=== PATIENT | male | born 1940 | race Caucasian/White ===

== ENCOUNTER 2019-05-04 04:21 | Inpatient (IN) | payer MEDICARE, OTHER ==
[2019-05-04] VITALS (7 sets, daily range): BP systolic 108–161; BP diastolic 50–94
[~2019-05-04] VITALS: Ht 175.3 cm; Wt 90.7 kg
[2019-05-04] MEDS ORDERED: HYDR12.53 PO (04:38)
[2019-05-04] MEDS ORDERED: ENAL20TA PO (04:38)
[2019-05-04] MEDS ORDERED: PIOG45TA PO (04:38)
[2019-05-04] MEDS ORDERED: GLIP10TA24 PO (04:38)
[2019-05-04] MEDS ORDERED: INSU100I13 SQ (04:38)
[2019-05-04] MEDS ORDERED: PRAV20TA2 PO (04:38)
[2019-05-04] MEDS ORDERED: ASPI-484 PO (04:38)
[2019-05-04] MEDS ORDERED: METF500T27 PO (04:38)
[2019-05-04] MEDS ORDERED: SILD50TA PO (04:40)
--- NOTE | 2019-05-04 04:54 | PCM.EKG ---
[facility] Test Date: 2019-05-04 Test Time: 04:51:52 Pat Name: CHUY MEJÍA Department: Room: 314 Gender: M Job Recruiter: KARRIE : 1940 Requested By: VALERIE GONZALES Order Number: [id number] Reading MD: Valerie GONZALES Measurements Intervals [place] Rate: 69 P: 93 [place]: 239 QRS: 81 QRSD: 94 T: 35 QT: 403 QTc: 432 Interpretive Statements Sinus rhythm Sinus pause Prolonged [place] interval Borderline right axis deviation Abnormal R-wave progression, late transition Baseline wander in lead(s) V3 No previous ECG available for comparison Electronically Signed On 05-15-2019 21:28:40 CHIROPRACTIC PHYSICIAN by Valerie GONZALES Please click the below link to view image of tracing.
[2019-05-04 05:01] LABS: BASOPHIL % 0.2 % (0.0-0.2); EOSINOPHIL # 0.1 10^3/uL (0.0-0.2); EOSINOPHIL % 1.5 % (0.0-5.0); HEMOGLOBIN 15.4 g/dL (13.9-16.3); LYMPHOCYTES # 1.1 10^3/uL (1.0-4.8); LYMPHOCYTES % 12.9 % (24.0-44.0); MEAN CELL HGB 32.3 pg (26-34); MEAN CELL HGB CONCENTRATION 33.3 g/dL (33-37); MEAN CORP VOLUME 96.9 fL (78-100); MEAN PLATELET VOLUME 9.9 fL (7.8-11.0); MONOCYTES # 0.7 10^3/uL (0.3-0.8); MONOCYTES % 8.4 % (5.0-12.0); NEUTROPHIL # 6.7 10^3/uL (1.8-7.7); RED CELL DISTRIBUTION WIDTH 13.2 % (11.5-14.5); WHITE BLOOD CELL 8.7 10^3/uL (4.5-11.0)
[2019-05-04 05:25] LABS: ALANINE AMINOTRANSFERASE(ML) 19 U/L (12-78); ALKALINE PHOSPHATASE 106 U/L (50-136); ASPARTATE AMINO TRANSFERASE 16 U/L (0-35); CALCIUM 9.3 mg/dL (8.4-10.5); CARBON DIOXIDE 26.5 mmol/L (20.0-32); GLUCOSE 199 mg/dL (70-110)
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
--- NOTE | 2019-05-04 05:33 | DIREP ---
PROCEDURE:CT HEAD OR BRAIN W/O CONTRAST COMPARISON:None. INDICATIONS:AMS TECHNIQUE:CT images were created without intravenous contrast. FINDINGS: VENTRICLES:The ventricles are normal in size and configuration. CEREBRUM:Small foci of diminished attenuation in the supratentorial white matter consistent with mild leukoaraiosis. CEREBELLUM:Negative. BRAINSTEM:Negative. BASAL CISTERNS:Negative. HEMORRHAGE:No MASS LESION:No ACUTE INFARCT:No SKULL:Normal. SINUSES:Normal. OTHER:None CONCLUSION:No acute intracranial process Dictated by: Jacoby Rivas DO on 05/04/2019 at 05:30 AM
[2019-05-04 05:51] LABS: BILIRUBIN,URINE NEGATIVE (NEGATIVE); UROBILINOGEN,URINE NORMAL (NEGATIVE)
[2019-05-04 05:57] LABS: APPEARANCE,URINE SLIGHTLY CLOUDY (CLEAR); UA COLOR YELLOW (YELLOW)
[2019-05-04] MEDS ORDERED: HNS 1000ML/KCL 20MEQ 1,000 ML IV STA (06:23)
[2019-05-04] MEDS ORDERED: ZITHROMAX 500 MG in NS 250ML 250 ML IV STA (06:23)
[2019-05-04] MEDS ORDERED: ROCEPHIN 1 GM in NS 100ML 100 ML IV STA (06:23)
[2019-05-04] MEDS ORDERED: HNS 1000ML/KCL 20MEQ 1,000 ML ONE (06:28)
[2019-05-04] MEDS ORDERED: NS 100ML 100 ML IV ONE (07:02)
[2019-05-04] MEDS ORDERED: NS 250ML 250 ML IV ONE (07:03)
[2019-05-04] MEDS ORDERED: ROCEPHIN ONE (07:03)
--- NOTE | 2019-05-04 07:15 | NUR ---
ADMIT PT TAKEN TO [facility] VIA W/C IN STABLE CONDITION.
[2019-05-04] MEDS ORDERED: DEXTROSE 50%-WATER SYRINGE IV PRN (10:00)
[2019-05-04] MEDS ORDERED: ASPIRIN ONE (10:22)
[2019-05-04] MEDS: ASPIRIN EC PO SCH (10:24)
[2019-05-04] MEDS ORDERED: TENIVAC SYRINGE IM ONE (10:30)
[2019-05-04] MEDS ORDERED: APRESOLINE IV PRN (10:30)
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
[2019-05-04] MEDS ORDERED: DUONEB 0.5 MG-3 MG/3 ML SOLN IH PRN (11:00)
[2019-05-04] MEDS ORDERED: ADACEL VIAL IM SCH (11:00)
[2019-05-04] MEDS: HUMULIN R SQ SCH ×3 (12:16→23:01)
[2019-05-04] MEDS: MEROPENEM 500 MG in NS 100ML 100 ML IV SCH ×2 (14:37→22:57)
[2019-05-04] MEDS ORDERED: LANTUS SQ SCH (21:00)
[2019-05-04] MEDS ORDERED: LIPITOR PO SCH (21:00)
[2019-05-05] VITALS (7 sets, daily range): BP systolic 110–165; BP diastolic 62–77
[2019-05-05 05:37] LABS: BASOPHIL % 0.1 % (0.0-0.2); EOSINOPHIL # 0.2 10^3/uL (0.0-0.2); EOSINOPHIL % 3.1 % (0.0-5.0); HEMOGLOBIN 13.2 g/dL (13.9-16.3); LYMPHOCYTES % 26.3 % (24.0-44.0); MEAN CELL HGB 32.3 pg (26-34); MEAN CELL HGB CONCENTRATION 32.8 g/dL (33-37); MEAN CORP VOLUME 98.5 fL (78-100); MEAN PLATELET VOLUME 10.3 fL (7.8-11.0); MONOCYTES # 0.9 10^3/uL (0.3-0.8); MONOCYTES % 11.4 % (5.0-12.0); NEUTROPHIL # 4.5 10^3/uL (1.8-7.7); NEUTROPHILS % 59.1 % (41.0-85.0); RED CELL DISTRIBUTION WIDTH 13.3 % (11.5-14.5); WHITE BLOOD CELL 7.7 10^3/uL (4.5-11.0)
[2019-05-05 05:58] LABS: CALCIUM 8.7 mg/dL (8.4-10.5); CARBON DIOXIDE 28.7 mmol/L (20.0-32)
[2019-05-05] MEDS ORDERED: NS 250ML 250 ML IV ONE (07:24)
[2019-05-05] MEDS: MEROPENEM 500 MG in NS 100ML 100 ML IV SCH ×3 (07:28→21:29)
[2019-05-05] MEDS: HUMULIN R SQ SCH ×4 (08:06→20:41)
[2019-05-05] MEDS: PROTONIX PO SCH (08:54)
[2019-05-05] MEDS: ASPIRIN EC PO SCH (08:55)
[2019-05-05] MEDS: ZESTRIL PO SCH (08:55)
[2019-05-05] MEDS ORDERED: XARELTO PO SCH (09:00)
--- NOTE | 2019-05-05 16:31 | PRM.PN ---
Subjective Subjective Date: May 05, 2019 Time: 16:15 Subjective Patient much more alert. Labs reviewed. Patient had drop in Hg. We will d/c Xarelto and repeat labs. Patient has no complaints. Patient History: Patient reports no known family medical history. VTE VTE Risk Score VTE Risk: Score 0-1 = Low Risk (Aggressive mobilization; early ambulation; no VTE prophylaxis required) Score 2: Moderate Risk (Intermittent/Pneumatic Compression Device OR Lovenox/Heparin/Coumadin) Score 3-4: High Risk (Intermittent/Pneumatic Compression Device AND Lovenox/Heparin/Coumadin) Score > or =5: Highest Risk (Intermittent/Pneumatic Compression Device AND Lovenox/Heparin/Coumadin) Review of Systems Allergies: Coded Allergies: No Known Allergies (Unverified , 05/04/19) Scheduled Aspirin (Aspir 81), 1 TAB PO QD, (Reported) Enalapril Maleate (Enalapril Maleate), 1 TAB PO DAILY, (Reported) Glipizide (Glipizide Er), 1 TAB PO DAILY, (Reported) Hydrochlorothiazide (Hydrochlorothiazide), 1 CAP PO DAILY, (Reported) Insulin Glargine,Hum.rec.anlog (Lantus Solostar), 45 UNITS SQ HS, (Reported) Metformin Hcl (Metformin Hcl Er), 4 TAB PO DAILY, (Reported) Pioglitazone Hcl (Actos), 1 TAB PO QD, (Reported) Pravastatin Sodium (Pravastatin Sodium), 1 TAB PO DAILY, (Reported) Sildenafil Citrate (Viagra), 20 MG PO 1 HOUR PRIOR, (Reported) Objective Vitals and I/O Vital Sign - Last 24 Hours 05/04/19 05/05/19 05/05/19 05/05/19 19:40 02:18 02:24 05:00 Temp 97.8 97.8 98.0 Pulse 62 60 62 Resp 16 16 16 B/P (MAP) 108/50 (69) 118/62 (80) 120/66 (84) Pulse Ox 92 93 94 O2 Delivery Room Air Room Air Room Air Room Air 05/05/19 05/05/19 05/05/19 05/05/19 08:35 08:55 09:57 11:03 Temp 97.9 Pulse 67 65 Resp 18 18 B/P (MAP) 120/66 118/68 (85) Pulse Ox 94 96 O2 Delivery Room Air Room Air 05/05/19 05/05/19 14:16 15:52 Temp 98.0 98.7 Pulse 60 58 Resp 18 B/P (MAP) 110/62 (78) 138/71 (93) Pulse Ox 96 95 O2 Delivery Room Air Room Air Intake and Output 05/04/19 05/04/19 05/05/19 15:00 23:00 07:00 Intake Total 300 ml 240 ml Output Total 400 ml 700 ml Balance 300 ml -400 ml -460 ml General: Alert, Cooperative, No acute distress HEENT: Atraumatic, PERRLA, EOMI, Mucous membr. moist/pink Neck: Supple, No JVD Lungs: Clear to auscultation, Normal air movement Heart: Regular rate, Normal S1, Normal S2, No murmurs Abdomen: Normal bowel sounds, Soft, No tenderness Extremities: No edema, Normal pulses, Other (mild abrasions to lower extremity) Skin: No rashes, No significant lesion Neuro: Normal speech, Strength at 5/5 X4 ext, Normal tone, Sensation intact, Cranial nerves 3-12 NL Psych/Mental Status: Mental status NL, Mood NL All Results(Lab/Rad) Laboratory Tests Test 05/04/19 17:03 05/04/19 22:32 05/05/19 04:35 05/05/19 12:05 Bedside Glucose 195 250 265 White Blood Count 7.7 10^3/uL Red Blood Count 4.09 10^6/uL Hemoglobin 13.2 g/dL Hematocrit 40.3 % Mean Corpuscular Volume 98.5 fL Mean Corpuscular Hemoglobin 32.3 pg Mean Corpuscular Hemoglobin Concent 32.8 g/dL Red Cell Distribution Width 13.3 % Platelet Count 254 10^3/uL Mean Platelet Volume 10.3 fL Neutrophils (%) (Auto) 59.1 % Lymphocytes (%) (Auto) 26.3 % Monocytes (%) (Auto) 11.4 % Neutrophils # (Auto) 4.5 10^3/uL Lymphocytes # (Auto) 2.0 10^3/uL Monocytes # (Auto) 0.9 10^3/uL Absolute Immature Granulocyte (auto 0 10^3 u/L Immature Granulocytes % 0.00 % Eosinophils % 3.1 % Basophils % 0.1 % Basophils # 0.0 10^3/uL Eosinophil Count 0.2 10^3/uL Sodium Level 141 mmol/L Potassium Level 3.5 mmol/L Chloride Level 104.0 mmol/L Carbon Dioxide Level 28.7 mmol/L Anion Gap 11.8 Blood Urea Nitrogen 22 mg/dL Creatinine 1.00 mg/dL Estimated GFR () 87.7 BUN/Creatinine Ratio 22.0 Glucose Level 222 mg/dL Calcium Level 8.7 mg/dL Total Bilirubin 0.4 mg/dL Aspartate Amino Transf (AST/SGOT) 13 U/L Alanine Aminotransferase (ALT/SGPT) 17 U/L Alkaline Phosphatase 89 U/L Total Protein 6.1 g/dL Albumin 2.8 g/dL Globulin 3.3 Current Medications Medications (Trade) Dose Ordered Sig/Gabriela Route PRN Reason Start Time Stop Time Status Last Admin Dose Admin Ceftriaxone Sodium 1 gm/ Sodium Chloride 100 ml @ 100 mls/hr DAILY STAT IV 05/04/19 06:23 05/04/19 07:22 DC 05/04/19 06:23 Azithromycin 500 mg/Sodium Chloride 250 ml @ 175 mls/hr STAT STAT IV 05/04/19 06:23 05/04/19 07:48 DC 05/04/19 06:23 Potassium Chloride/Sodium Chloride 1,000 ml @ 50 mls/hr Q20H STAT IV 05/04/19 06:23 05/05/19 02:22 DC 05/04/19 07:01 Potassium Chloride/Sodium Chloride 1,000 ml @ ud STK-MED ONCE .ROUTE 05/04/19 06:28 05/04/19 06:29 DC Sodium Chloride 100 ml @ ud STK-MED ONCE IV 05/04/19 07:02 05/04/19 07:03 DC Ceftriaxone Sodium (Rocephin) 1 gm STK-MED ONCE .ROUTE 05/04/19 07:03 05/04/19 07:04 DC Sodium Chloride 250 ml @ ud STK-MED ONCE IV 05/04/19 07:03 05/04/19 07:04 DC Aspirin (Aspirin Ec) 81 mg QD PO 05/04/19 10:00 06/03/19 09:59 05/05/19 08:55 Lisinopril (Zestril) 40 mg DAILY PO 05/05/19 09:00 06/04/19 08:59 05/05/19 08:55 Insulin Glargine (Lantus) 45 unit HS SQ 05/04/19 21:00 05/05/19 16:13 DC 05/04/19 23:03 Atorvastatin Calcium (Lipitor) 0.5 mg HS PO 05/04/19 21:00 05/04/19 23:44 DC Insulin Human Regular (Humulin R) Give 30 minutes before meal ACHS SQ 05/04/19 11:30 06/03/19 11:29 05/05/19 12:25 Dextrose (Dextrose 50%-Water Syringe) 25 ml STAT PRN IV HYPOGLYCEMIA 05/04/19 10:00 06/03/19 09:59 Pantoprazole Sodium (Protonix) 40 mg DAILY PO 05/05/19 09:00 06/04/19 08:59 05/05/19 08:54 Meropenem 500 mg/ Sodium Chloride 100 ml @ 200 mls/hr Q8 IV 05/04/19 14:00 06/03/19 13:59 05/05/19 14:16 Rivaroxaban (Xarelto) 10 mg DAILY PO 05/05/19 09:00 06/04/19 08:59 05/05/19 08:55 Hydralazine HCl (Apresoline) 10 mg Q4HR PRN IV HYPERTENSION 05/04/19 10:30 06/03/19 10:29 Aspirin (Aspirin) 81 mg STK-MED ONCE .ROUTE 05/04/19 10:22 05/04/19 10:24 DC Albuterol/ Ipratropium (Duoneb 0.5 Mg-3 Mg/3 ml Soln) 3 ml Q4HR PRN IH WHEEZING 05/04/19 11:00 06/03/19 10:59 Diphtheria/ Tetanus/Acell Pertussis (Adacel Vial) 0.5 ml OT IM 05/04/19 11:00 06/03/19 10:59 05/04/19 18:34 Atorvastatin Calcium (Lipitor) 20 mg HS PO 05/05/19 21:00 06/04/19 20:59 Insulin Glargine (Lantus) 50 unit HS SQ 05/05/19 21:00 06/04/19 20:59 UNV Course Sepsis Screening Results: Posi: NEGATIVE Sepsis Qualifier/Stage: NO DEFINITE RISK Duration or Total Time Spent w: 60 mins Vitals & review Data Vital Sign - Last 24 Hours 05/04/19 05/05/19 05/05/19 05/05/19 19:40 02:18 02:24 05:00 Temp 97.8 97.8 98.0 Pulse 62 60 62 Resp 16 16 16 B/P (MAP) 108/50 (69) 118/62 (80) 120/66 (84) Pulse Ox 92 93 94 O2 Delivery Room Air Room Air Room Air Room Air 05/05/19 05/05/19 05/05/19 05/05/19 08:35 08:55 09:57 11:03 Temp 97.9 Pulse 67 65 Resp 18 18 B/P (MAP) 120/66 118/68 (85) Pulse Ox 94 96 O2 Delivery Room Air Room Air 05/05/19 05/05/19 14:16 15:52 Temp 98.0 98.7 Pulse 60 58 Resp 18 B/P (MAP) 110/62 (78) 138/71 (93) Pulse Ox 96 95 O2 Delivery Room Air Room Air Intake and Output 05/04/19 05/04/19 05/05/19 15:00 23:00 07:00 Intake Total 300 ml 240 ml Output Total 400 ml 700 ml Balance 300 ml -400 ml -460 ml Laboratory Tests Test 05/04/19 05:00 05/04/19 05:45 05/04/19 12:01 05/04/19 17:03 White Blood Count 8.7 10^3/uL Red Blood Count 4.77 10^6/uL Hemoglobin 15.4 g/dL Hematocrit 46.2 % Mean Corpuscular Volume 96.9 fL Mean Corpuscular Hemoglobin 32.3 pg Mean Corpuscular Hemoglobin Concent 33.3 g/dL Red Cell Distribution Width 13.2 % Platelet Count 303 10^3/uL Mean Platelet Volume 9.9 fL Neutrophils (%) (Auto) 77.0 % Lymphocytes (%) (Auto) 12.9 % Monocytes (%) (Auto) 8.4 % Neutrophils # (Auto) 6.7 10^3/uL Lymphocytes # (Auto) 1.1 10^3/uL Monocytes # (Auto) 0.7 10^3/uL Absolute Immature Granulocyte (auto 0 10^3 u/L Immature Granulocytes % 0.00 % Eosinophils % 1.5 % Basophils % 0.2 % Basophils # 0.0 10^3/uL Eosinophil Count 0.1 10^3/uL Prothrombin Time 10.4 SEC Prothrombin Time INR (Non-Therap) 1.0 Activated Partial Thromboplast Time 24.7 SEC Sodium Level 143 mmol/L Potassium Level 3.6 mmol/L Chloride Level 105.0 mmol/L Carbon Dioxide Level 26.5 mmol/L Anion Gap 15.1 Blood Urea Nitrogen 17 mg/dL Creatinine 0.94 mg/dL Estimated GFR () 94.2 BUN/Creatinine Ratio 18.0 Glucose Level 199 mg/dL Calcium Level 9.3 mg/dL Total Bilirubin 0.8 mg/dL Aspartate Amino Transf (AST/SGOT) 16 U/L Alanine Aminotransferase (ALT/SGPT) 19 U/L Alkaline Phosphatase 106 U/L Total Creatine Kinase 135 U/L Troponin I < 0.02 ng/mL Total Protein 7.4 g/dL Albumin 3.4 g/dL Globulin 4.0 Urine Collection Type UNKNOWN Urine Color YELLOW Urine Appearance SLIGHTLY CLOUDY Urine Bilirubin NEGATIVE MG/DL Urine Ketones 50 mg/dL Urine Specific [place] 1.020 Urine pH 5 Urine Protein 100 mg/dL Urine Urobilinogen NORMAL Urine Nitrate NEGATIVE Urine Leukocyte Esterase 25 /uL TRACE Urine Blood 50 2+ Urine RBC 10-25 RBC/HPF Urine WBC 10-25 WBC/HPF Urine Squamous Epithelial Cells FEW #/HPF Urine Bacteria FEW Urine Glucose 250 Bedside Glucose 209 195 Test 05/04/19 22:32 05/05/19 04:35 05/05/19 12:05 Bedside Glucose 250 265 White Blood Count 7.7 10^3/uL Red Blood Count 4.09 10^6/uL Hemoglobin 13.2 g/dL Hematocrit 40.3 % Mean Corpuscular Volume 98.5 fL Mean Corpuscular Hemoglobin 32.3 pg Mean Corpuscular Hemoglobin Concent 32.8 g/dL Red Cell Distribution Width 13.3 % Platelet Count 254 10^3/uL Mean Platelet Volume 10.3 fL Neutrophils (%) (Auto) 59.1 % Lymphocytes (%) (Auto) 26.3 % Monocytes (%) (Auto) 11.4 % Neutrophils # (Auto) 4.5 10^3/uL Lymphocytes # (Auto) 2.0 10^3/uL Monocytes # (Auto) 0.9 10^3/uL Absolute Immature Granulocyte (auto 0 10^3 u/L Immature Granulocytes % 0.00 % Eosinophils % 3.1 % Basophils % 0.1 % Basophils # 0.0 10^3/uL Eosinophil Count 0.2 10^3/uL Sodium Level 141 mmol/L Potassium Level 3.5 mmol/L Chloride Level 104.0 mmol/L Carbon Dioxide Level 28.7 mmol/L Anion Gap 11.8 Blood Urea Nitrogen 22 mg/dL Creatinine 1.00 mg/dL Estimated GFR () 87.7 BUN/Creatinine Ratio 22.0 Glucose Level 222 mg/dL Calcium Level 8.7 mg/dL Total Bilirubin 0.4 mg/dL Aspartate Amino Transf (AST/SGOT) 13 U/L Alanine Aminotransferase (ALT/SGPT) 17 U/L Alkaline Phosphatase 89 U/L Total Protein 6.1 g/dL Albumin 2.8 g/dL Globulin 3.3 Current Medications Medications (Trade) Dose Ordered Sig/Gabriela PRN Reason Start Time Stop Time Status Last Admin Albuterol/ Ipratropium (Duoneb 0.5 Mg-3 Mg/3 ml Soln) 3 ml Q4HR PRN WHEEZING 05/04/19 11:00 06/03/19 10:59 Aspirin (Aspirin Ec) 81 mg QD 05/04/19 10:00 06/03/19 09:59 05/05/19 08:55 Atorvastatin Calcium (Lipitor) 20 mg HS 05/05/19 21:00 06/04/19 20:59 Dextrose (Dextrose 50%-Water Syringe) 25 ml STAT PRN HYPOGLYCEMIA 05/04/19 10:00 06/03/19 09:59 Diphtheria/ Tetanus/Acell Pertussis (Adacel Vial) 0.5 ml OT 05/04/19 11:00 06/03/19 10:59 05/04/19 18:34 Hydralazine HCl (Apresoline) 10 mg Q4HR PRN HYPERTENSION 05/04/19 10:30 06/03/19 10:29 Insulin Glargine (Lantus) 50 unit HS 05/05/19 21:00 06/04/19 20:59 UNV Insulin Human Regular (Humulin R) Give 30 minutes before meal ACHS 05/04/19 11:30 06/03/19 11:29 05/05/19 12:25 Lisinopril (Zestril) 40 mg DAILY 05/05/19 09:00 06/04/19 08:59 05/05/19 08:55 Meropenem 500 mg/ Sodium Chloride 100 ml @ 200 mls/hr Q8 05/04/19 14:00 06/03/19 13:59 05/05/19 14:16 Pantoprazole Sodium (Protonix) 40 mg DAILY 05/05/19 09:00 06/04/19 08:59 05/05/19 08:54 Rivaroxaban (Xarelto) 10 mg DAILY 05/05/19 09:00 06/04/19 08:59 05/05/19 08:55 Sepsis Infection Criteria Pres: Suspected Infection LEVEL 1 SEPSIS INFECTION CRITE: ABX Therapy, Flu-Pneumonia, Urinary Tract I nfection LEVEL 2-SIRS (LIST ALL THAT AP: None/Not assessed Cardiovascular Evidence: Not Assessed or None Hematologic Evidence: None/Not assessed Hepatic Evidence: None/Not assessed Metabolic Evidence: None/Not assessed Neurological Evidence: None/Not assessed Respiratory Evidence: None/Not assessed Renal Evidence: None/Not assessed O2 Sat by Pulse Oximetry: 95 Assessment/Plan Assessment/Plan Assessment/Plan 1. AMS/Metabolic encephalopathy: resolved. cont treatment of underlying infections. 2. Community Acquired Pneumonia: cont IV abx. Patient not requiring O2 support. 3. UTI: cont IV abx, urine cx pending. 4. HLD: cont Statin 5. HTN: cont ALEM, Hydralazine PRN 6. DM: increased Lantus, cont SSI 7. PPx: PPI, Xarelto 8. Anemia: Hg dropped and BUN elevated. We will d/c Xarelto and check CBC this evening. Patient denies melena, hematochezia. GARRET CHAMBERLAIN MD May 05, 2019 16:31
[2019-05-05 18:16] LABS: BASOPHIL % 0.5 % (0.0-0.2); EOSINOPHIL # 0.2 10^3/uL (0.0-0.2); EOSINOPHIL % 2.8 % (0.0-5.0); HEMOGLOBIN 13.9 g/dL (13.9-16.3); LYMPHOCYTES # 1.7 10^3/uL (1.0-4.8); LYMPHOCYTES % 22.4 % (24.0-44.0); MEAN CELL HGB 32.6 pg (26-34); MEAN CELL HGB CONCENTRATION 33.1 g/dL (33-37); MEAN CORP VOLUME 98.4 fL (78-100); MONOCYTES # 0.7 10^3/uL (0.3-0.8); MONOCYTES % 9.4 % (5.0-12.0); NEUTROPHIL # 4.9 10^3/uL (1.8-7.7); NEUTROPHILS % 64.8 % (41.0-85.0); RED CELL DISTRIBUTION WIDTH 13.1 % (11.5-14.5); WHITE BLOOD CELL 7.6 10^3/uL (4.5-11.0)
[2019-05-05] MEDS ORDERED: NS 1000ML 1,000 ML ONE (19:15)
[2019-05-05] MEDS ORDERED: DILAUDID ONE (19:16)
[2019-05-05] MEDS: LIPITOR PO SCH (20:38)
[2019-05-05] MEDS: LANTUS SQ SCH (20:40)
[2019-05-06 05:15] VITALS: BP 162/94
[2019-05-06 05:16] LABS: BASOPHIL % 0.4 % (0.0-0.2); EOSINOPHIL # 0.3 10^3/uL (0.0-0.2); EOSINOPHIL % 4.3 % (0.0-5.0); HEMOGLOBIN 13.6 g/dL (13.9-16.3); LYMPHOCYTES % 25.8 % (24.0-44.0); MEAN CELL HGB 32.7 pg (26-34); MEAN CELL HGB CONCENTRATION 33.3 g/dL (33-37); MEAN CORP VOLUME 98.3 fL (78-100); MONOCYTES # 0.8 10^3/uL (0.3-0.8); MONOCYTES % 9.6 % (5.0-12.0); NEUTROPHIL # 4.7 10^3/uL (1.8-7.7); NEUTROPHILS % 59.6 % (41.0-85.0); RED CELL DISTRIBUTION WIDTH 13.2 % (11.5-14.5); WHITE BLOOD CELL 7.9 10^3/uL (4.5-11.0)
[2019-05-06 05:36] LABS: CALCIUM 9.1 mg/dL (8.4-10.5); CARBON DIOXIDE 26.2 mmol/L (20.0-32)
[2019-05-06] MEDS: MEROPENEM 500 MG in NS 100ML 100 ML IV SCH ×3 (05:48→20:58)
[2019-05-06 07:27] VITALS: BP 171/93
[2019-05-06] MEDS: HUMULIN R SQ SCH ×4 (09:56→20:56)
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
[2019-05-06] MEDS: PROTONIX PO SCH (10:03)
[2019-05-06] MEDS: ASPIRIN EC PO SCH (10:06)
[2019-05-06] MEDS: ZESTRIL PO SCH (10:06)
--- NOTE | 2019-05-06 13:19 | PRM.PN ---
Subjective Subjective Date: May 06, 2019 Time: 13:10 Subjective Patient still improving. Labs reviewed. Son expected to be in town today. Likely d/c patient in AM. No further acute issues. Patient History: Patient reports no known family medical history. VTE VTE Risk Score VTE Risk: Score 0-1 = Low Risk (Aggressive mobilization; early ambulation; no VTE prophylaxis required) Score 2: Moderate Risk (Intermittent/Pneumatic Compression Device OR Lovenox/Heparin/Coumadin) Score 3-4: High Risk (Intermittent/Pneumatic Compression Device AND Lovenox/Heparin/Coumadin) Score > or =5: Highest Risk (Intermittent/Pneumatic Compression Device AND Lovenox/Heparin/Coumadin) Review of Systems Allergies: Coded Allergies: No Known Allergies (Unverified , 05/04/19) Scheduled Aspirin (Aspir 81), 1 TAB PO QD, (Reported) Enalapril Maleate (Enalapril Maleate), 1 TAB PO DAILY, (Reported) Glipizide (Glipizide Er), 1 TAB PO DAILY, (Reported) Hydrochlorothiazide (Hydrochlorothiazide), 1 CAP PO DAILY, (Reported) Insulin Glargine,Hum.rec.anlog (Lantus Solostar), 45 UNITS SQ HS, (Reported) Metformin Hcl (Metformin Hcl Er), 4 TAB PO DAILY, (Reported) Pioglitazone Hcl (Actos), 1 TAB PO QD, (Reported) Pravastatin Sodium (Pravastatin Sodium), 1 TAB PO DAILY, (Reported) Sildenafil Citrate (Viagra), 20 MG PO 1 HOUR PRIOR, (Reported) Objective Vitals and I/O Vital Sign - Last 24 Hours 05/04/19 05/05/19 05/05/19 05/05/19 19:40 02:18 02:24 05:00 Temp 97.8 97.8 98.0 Pulse 62 60 62 Resp 16 16 16 B/P (MAP) 108/50 (69) 118/62 (80) 120/66 (84) Pulse Ox 92 93 94 O2 Delivery Room Air Room Air Room Air Room Air 05/05/19 05/05/19 05/05/19 05/05/19 08:35 08:55 09:57 11:03 Temp 97.9 Pulse 67 65 Resp 18 18 B/P (MAP) 120/66 118/68 (85) Pulse Ox 94 96 O2 Delivery Room Air Room Air 05/05/19 05/05/19 14:16 15:52 Temp 98.0 98.7 Pulse 60 58 Resp 18 B/P (MAP) 110/62 (78) 138/71 (93) Pulse Ox 96 95 O2 Delivery Room Air Room Air Intake and Output 05/04/19 05/04/19 05/05/19 15:00 23:00 07:00 Intake Total 300 ml 240 ml Output Total 400 ml 700 ml Balance 300 ml -400 ml -460 ml General: Alert, Cooperative, No acute distress HEENT: Atraumatic, PERRLA, EOMI, Mucous membr. moist/pink Neck: Supple, No JVD Lungs: Clear to auscultation, Normal air movement Heart: Regular rate, Normal S1, Normal S2, No murmurs Abdomen: Normal bowel sounds, Soft, No tenderness Extremities: No edema, Normal pulses, Other (mild abrasions to lower extremity) Skin: No rashes, No significant lesion Neuro: Normal speech, Strength at 5/5 X4 ext, Normal tone, Sensation intact, Cranial nerves 3-12 NL Psych/Mental Status: Mental status NL, Mood NL All Results(Lab/Rad) Laboratory Tests Test 05/04/19 17:03 05/04/19 22:32 05/05/19 04:35 05/05/19 12:05 Bedside Glucose 195 250 265 White Blood Count 7.7 10^3/uL Red Blood Count 4.09 10^6/uL Hemoglobin 13.2 g/dL Hematocrit 40.3 % Mean Corpuscular Volume 98.5 fL Mean Corpuscular Hemoglobin 32.3 pg Mean Corpuscular Hemoglobin Concent 32.8 g/dL Red Cell Distribution Width 13.3 % Platelet Count 254 10^3/uL Mean Platelet Volume 10.3 fL Neutrophils (%) (Auto) 59.1 % Lymphocytes (%) (Auto) 26.3 % Monocytes (%) (Auto) 11.4 % Neutrophils # (Auto) 4.5 10^3/uL Lymphocytes # (Auto) 2.0 10^3/uL Monocytes # (Auto) 0.9 10^3/uL Absolute Immature Granulocyte (auto 0 10^3 u/L Immature Granulocytes % 0.00 % Eosinophils % 3.1 % Basophils % 0.1 % Basophils # 0.0 10^3/uL Eosinophil Count 0.2 10^3/uL Sodium Level 141 mmol/L Potassium Level 3.5 mmol/L Chloride Level 104.0 mmol/L Carbon Dioxide Level 28.7 mmol/L Anion Gap 11.8 Blood Urea Nitrogen 22 mg/dL Creatinine 1.00 mg/dL Estimated GFR () 87.7 BUN/Creatinine Ratio 22.0 Glucose Level 222 mg/dL Calcium Level 8.7 mg/dL Total Bilirubin 0.4 mg/dL Aspartate Amino Transf (AST/SGOT) 13 U/L Alanine Aminotransferase (ALT/SGPT) 17 U/L Alkaline Phosphatase 89 U/L Total Protein 6.1 g/dL Albumin 2.8 g/dL Globulin 3.3 Current Medications Medications (Trade) Dose Ordered Sig/Gabriela Route PRN Reason Start Time Stop Time Status Last Admin Dose Admin Ceftriaxone Sodium 1 gm/ Sodium Chloride 100 ml @ 100 mls/hr DAILY STAT IV 05/04/19 06:23 05/04/19 07:22 DC 05/04/19 06:23 Azithromycin 500 mg/Sodium Chloride 250 ml @ 175 mls/hr STAT STAT IV 05/04/19 06:23 05/04/19 07:48 DC 05/04/19 06:23 Potassium Chloride/Sodium Chloride 1,000 ml @ 50 mls/hr Q20H STAT IV 05/04/19 06:23 05/05/19 02:22 DC 05/04/19 07:01 Potassium Chloride/Sodium Chloride 1,000 ml @ ud STK-MED ONCE .ROUTE 05/04/19 06:28 05/04/19 06:29 DC Sodium Chloride 100 ml @ ud STK-MED ONCE IV 05/04/19 07:02 05/04/19 07:03 DC Ceftriaxone Sodium (Rocephin) 1 gm STK-MED ONCE .ROUTE 05/04/19 07:03 05/04/19 07:04 DC Sodium Chloride 250 ml @ ud STK-MED ONCE IV 05/04/19 07:03 05/04/19 07:04 DC Aspirin (Aspirin Ec) 81 mg QD PO 05/04/19 10:00 06/03/19 09:59 05/05/19 08:55 Lisinopril (Zestril) 40 mg DAILY PO 05/05/19 09:00 06/04/19 08:59 05/05/19 08:55 Insulin Glargine (Lantus) 45 unit HS SQ 05/04/19 21:00 05/05/19 16:13 DC 05/04/19 23:03 Atorvastatin Calcium (Lipitor) 0.5 mg HS PO 05/04/19 21:00 05/04/19 23:44 DC Insulin Human Regular (Humulin R) Give 30 minutes before meal ACHS SQ 05/04/19 11:30 06/03/19 11:29 05/05/19 12:25 Dextrose (Dextrose 50%-Water Syringe) 25 ml STAT PRN IV HYPOGLYCEMIA 05/04/19 10:00 06/03/19 09:59 Pantoprazole Sodium (Protonix) 40 mg DAILY PO 05/05/19 09:00 06/04/19 08:59 05/05/19 08:54 Meropenem 500 mg/ Sodium Chloride 100 ml @ 200 mls/hr Q8 IV 05/04/19 14:00 06/03/19 13:59 05/05/19 14:16 Rivaroxaban (Xarelto) 10 mg DAILY PO 05/05/19 09:00 06/04/19 08:59 05/05/19 08:55 Hydralazine HCl (Apresoline) 10 mg Q4HR PRN IV HYPERTENSION 05/04/19 10:30 06/03/19 10:29 Aspirin (Aspirin) 81 mg STK-MED ONCE .ROUTE 05/04/19 10:22 05/04/19 10:24 DC Albuterol/ Ipratropium (Duoneb 0.5 Mg-3 Mg/3 ml Soln) 3 ml Q4HR PRN IH WHEEZING 05/04/19 11:00 06/03/19 10:59 Diphtheria/ Tetanus/Acell Pertussis (Adacel Vial) 0.5 ml OT IM 05/04/19 11:00 06/03/19 10:59 05/04/19 18:34 Atorvastatin Calcium (Lipitor) 20 mg HS PO 05/05/19 21:00 06/04/19 20:59 Insulin Glargine (Lantus) 50 unit HS SQ 05/05/19 21:00 06/04/19 20:59 UNV Course Sepsis Screening Results: Posi: NEGATIVE Sepsis Qualifier/Stage: NO DEFINITE RISK Duration or Total Time Spent w: 60 mins Vitals & review Data Vital Sign - Last 24 Hours 05/04/19 05/05/19 05/05/19 05/05/19 19:40 02:18 02:24 05:00 Temp 97.8 97.8 98.0 Pulse 62 60 62 Resp 16 16 16 B/P (MAP) 108/50 (69) 118/62 (80) 120/66 (84) Pulse Ox 92 93 94 O2 Delivery Room Air Room Air Room Air Room Air 05/05/19 05/05/19 05/05/19 05/05/19 08:35 08:55 09:57 11:03 Temp 97.9 Pulse 67 65 Resp 18 18 B/P (MAP) 120/66 118/68 (85) Pulse Ox 94 96 O2 Delivery Room Air Room Air 05/05/19 05/05/19 14:16 15:52 Temp 98.0 98.7 Pulse 60 58 Resp 18 B/P (MAP) 110/62 (78) 138/71 (93) Pulse Ox 96 95 O2 Delivery Room Air Room Air Intake and Output 05/04/19 05/04/19 05/05/19 15:00 23:00 07:00 Intake Total 300 ml 240 ml Output Total 400 ml 700 ml Balance 300 ml -400 ml -460 ml Laboratory Tests Test 05/04/19 05:00 05/04/19 05:45 05/04/19 12:01 05/04/19 17:03 White Blood Count 8.7 10^3/uL Red Blood Count 4.77 10^6/uL Hemoglobin 15.4 g/dL Hematocrit 46.2 % Mean Corpuscular Volume 96.9 fL Mean Corpuscular Hemoglobin 32.3 pg Mean Corpuscular Hemoglobin Concent 33.3 g/dL Red Cell Distribution Width 13.2 % Platelet Count 303 10^3/uL Mean Platelet Volume 9.9 fL Neutrophils (%) (Auto) 77.0 % Lymphocytes (%) (Auto) 12.9 % Monocytes (%) (Auto) 8.4 % Neutrophils # (Auto) 6.7 10^3/uL Lymphocytes # (Auto) 1.1 10^3/uL Monocytes # (Auto) 0.7 10^3/uL Absolute Immature Granulocyte (auto 0 10^3 u/L Immature Granulocytes % 0.00 % Eosinophils % 1.5 % Basophils % 0.2 % Basophils # 0.0 10^3/uL Eosinophil Count 0.1 10^3/uL Prothrombin Time 10.4 SEC Prothrombin Time INR (Non-Therap) 1.0 Activated Partial Thromboplast Time 24.7 SEC Sodium Level 143 mmol/L Potassium Level 3.6 mmol/L Chloride Level 105.0 mmol/L Carbon Dioxide Level 26.5 mmol/L Anion Gap 15.1 Blood Urea Nitrogen 17 mg/dL Creatinine 0.94 mg/dL Estimated GFR () 94.2 BUN/Creatinine Ratio 18.0 Glucose Level 199 mg/dL Calcium Level 9.3 mg/dL Total Bilirubin 0.8 mg/dL Aspartate Amino Transf (AST/SGOT) 16 U/L Alanine Aminotransferase (ALT/SGPT) 19 U/L Alkaline Phosphatase 106 U/L Total Creatine Kinase 135 U/L Troponin I < 0.02 ng/mL Total Protein 7.4 g/dL Albumin 3.4 g/dL Globulin 4.0 Urine Collection Type UNKNOWN Urine Color YELLOW Urine Appearance SLIGHTLY CLOUDY Urine Bilirubin NEGATIVE MG/DL Urine Ketones 50 mg/dL Urine Specific [place] 1.020 Urine pH 5 Urine Protein 100 mg/dL Urine Urobilinogen NORMAL Urine Nitrate NEGATIVE Urine Leukocyte Esterase 25 /uL TRACE Urine Blood 50 2+ Urine RBC 10-25 RBC/HPF Urine WBC 10-25 WBC/HPF Urine Squamous Epithelial Cells FEW #/HPF Urine Bacteria FEW Urine Glucose 250 Bedside Glucose 209 195 Test 05/04/19 22:32 05/05/19 04:35 05/05/19 12:05 Bedside Glucose 250 265 White Blood Count 7.7 10^3/uL Red Blood Count 4.09 10^6/uL Hemoglobin 13.2 g/dL Hematocrit 40.3 % Mean Corpuscular Volume 98.5 fL Mean Corpuscular Hemoglobin 32.3 pg Mean Corpuscular Hemoglobin Concent 32.8 g/dL Red Cell Distribution Width 13.3 % Platelet Count 254 10^3/uL Mean Platelet Volume 10.3 fL Neutrophils (%) (Auto) 59.1 % Lymphocytes (%) (Auto) 26.3 % Monocytes (%) (Auto) 11.4 % Neutrophils # (Auto) 4.5 10^3/uL Lymphocytes # (Auto) 2.0 10^3/uL Monocytes # (Auto) 0.9 10^3/uL Absolute Immature Granulocyte (auto 0 10^3 u/L Immature Granulocytes % 0.00 % Eosinophils % 3.1 % Basophils % 0.1 % Basophils # 0.0 10^3/uL Eosinophil Count 0.2 10^3/uL Sodium Level 141 mmol/L Potassium Level 3.5 mmol/L Chloride Level 104.0 mmol/L Carbon Dioxide Level 28.7 mmol/L Anion Gap 11.8 Blood Urea Nitrogen 22 mg/dL Creatinine 1.00 mg/dL Estimated GFR () 87.7 BUN/Creatinine Ratio 22.0 Glucose Level 222 mg/dL Calcium Level 8.7 mg/dL Total Bilirubin 0.4 mg/dL Aspartate Amino Transf (AST/SGOT) 13 U/L Alanine Aminotransferase (ALT/SGPT) 17 U/L Alkaline Phosphatase 89 U/L Total Protein 6.1 g/dL Albumin 2.8 g/dL Globulin 3.3 Current Medications Medications (Trade) Dose Ordered Sig/Gabriela PRN Reason Start Time Stop Time Status Last Admin Albuterol/ Ipratropium (Duoneb 0.5 Mg-3 Mg/3 ml Soln) 3 ml Q4HR PRN WHEEZING 05/04/19 11:00 06/03/19 10:59 Aspirin (Aspirin Ec) 81 mg QD 05/04/19 10:00 06/03/19 09:59 05/05/19 08:55 Atorvastatin Calcium (Lipitor) 20 mg HS 05/05/19 21:00 06/04/19 20:59 Dextrose (Dextrose 50%-Water Syringe) 25 ml STAT PRN HYPOGLYCEMIA 05/04/19 10:00 06/03/19 09:59 Diphtheria/ Tetanus/Acell Pertussis (Adacel Vial) 0.5 ml OT 05/04/19 11:00 06/03/19 10:59 05/04/19 18:34 Hydralazine HCl (Apresoline) 10 mg Q4HR PRN HYPERTENSION 05/04/19 10:30 06/03/19 10:29 Insulin Glargine (Lantus) 50 unit HS 05/05/19 21:00 06/04/19 20:59 UNV Insulin Human Regular (Humulin R) Give 30 minutes before meal ACHS 05/04/19 11:30 06/03/19 11:29 05/05/19 12:25 Lisinopril (Zestril) 40 mg DAILY 05/05/19 09:00 06/04/19 08:59 05/05/19 08:55 Meropenem 500 mg/ Sodium Chloride 100 ml @ 200 mls/hr Q8 05/04/19 14:00 06/03/19 13:59 05/05/19 14:16 Pantoprazole Sodium (Protonix) 40 mg DAILY 05/05/19 09:00 06/04/19 08:59 05/05/19 08:54 Rivaroxaban (Xarelto) 10 mg DAILY 05/05/19 09:00 06/04/19 08:59 05/05/19 08:55 Sepsis Infection Criteria Pres: Suspected Infection LEVEL 1 SEPSIS INFECTION CRITE: ABX Therapy, Flu-Pneumonia, Urinary Tract Infection LEVEL 2-SIRS (LIST ALL THAT AP: None/Not assessed Cardiovascular Evidence: Not Assessed or None Hematologic Evidence: None/Not assessed Hepatic Evidence: None/Not assessed Metabolic Evidence: None/Not assessed Neurological Evidence: None/Not assessed Respiratory Evidence: None/Not assessed Renal Evidence: None/Not assessed O2 Sat by Pulse Oximetry: 96 Assessment/Plan Assessment/Plan Assessment/Plan 1. AMS/Metabolic encephalopathy: resolved. cont treatment of underlying infections. 2. Community Acquired Pneumonia: cont IV abx. Patient not requiring O2 support. No respiratory distress. 3. UTI: cont IV abx, final urine cx results pending. 4. HLD: cont Statin 5. HTN: cont ALEM, Hydralazine PRN 6. DM: increased Lantus with improvement in fasting glucose. Cont SSI to cover. 7. PPx: PPI 8. Anemia: Hg stable, no further evaluation necessary. F/U outpatient with GI. GARRET CHAMBERLAIN MD May 06, 2019 13:19
[2019-05-06] MEDS ORDERED: APRESOLINE IV PRN (13:30)
[2019-05-06 14:11] VITALS: BP 169/74
[2019-05-06 19:31] VITALS: BP 191/92
[2019-05-06 20:13] VITALS: BP 170/82
[2019-05-06] MEDS: LIPITOR PO SCH (20:57)
[2019-05-06] MEDS: LANTUS SQ SCH (20:57)
[2019-05-06 23:50] VITALS: BP 165/69
--- NOTE | 2019-05-07 01:33 | NUR ---
patient woke up confused to place time wandering mujica trying to figure out how to get out and home . reorientated patient to place ,time, and room , asking questions about where I'm I and how can I get home , explain that he is in hospital and that son would be picking up tomorrow, patient ambulated up and done halls , still trying to to figure out where he is , patient ask about bathroom , returned him to his room to use bathroom patient stated I do remember this , patient set in chair in room reorientating self , place shoes on than stated I"m remembering now ,
--- NOTE | 2019-05-07 04:01 | NUR ---
patient up walking mujica to nurses station , voiced understanding that he is in hospital , but still with confusion remembers some things said last evening , others not still gets words in wrong place or forgets what is being said but does know sandwich given to patient ,patient in room at this time
[2019-05-07 04:34] VITALS: BP 169/74
[2019-05-07 05:07] LABS: BASOPHIL % 0.5 % (0.0-0.2); EOSINOPHIL # 0.5 10^3/uL (0.0-0.2); EOSINOPHIL % 5.9 % (0.0-5.0); HEMOGLOBIN 13.5 g/dL (13.9-16.3); LYMPHOCYTES # 1.7 10^3/uL (1.0-4.8); LYMPHOCYTES % 20.7 % (24.0-44.0); MEAN CELL HGB 31.8 pg (26-34); MEAN CELL HGB CONCENTRATION 31.8 g/dL (33-37); MONOCYTES # 0.9 10^3/uL (0.3-0.8); MONOCYTES % 10.5 % (5.0-12.0); NEUTROPHIL # 5.1 10^3/uL (1.8-7.7); NEUTROPHILS % 62.2 % (41.0-85.0); RED CELL DISTRIBUTION WIDTH 13.4 % (11.5-14.5); WHITE BLOOD CELL 8.2 10^3/uL (4.5-11.0)
[2019-05-07 05:13] LABS: CALCIUM 9.1 mg/dL (8.4-10.5); CARBON DIOXIDE 28.2 mmol/L (20.0-32)
[2019-05-07] MEDS: MEROPENEM 500 MG in NS 100ML 100 ML IV SCH (05:19)
[2019-05-07 07:36] VITALS: BP 184/67
[2019-05-07] MEDS: HUMULIN R SQ SCH ×2 (08:03→11:57)
[2019-05-07] MEDS: ZESTRIL PO SCH (08:31)
[2019-05-07] MEDS: PROTONIX PO SCH (08:31)
[2019-05-07] MEDS ORDERED: ASPIRIN EC PO SCH (09:00)
[2019-05-07] MEDS ORDERED: NORVASC PO SCH (09:00)
--- NOTE | 2019-05-07 11:30 | NUR ---
DISCHARGE UPDATE PATIENT'S SON, MYRIAM, ARRIVED TO UNIT TO PICK PATIENT UP. CM INTRODUCED SELF TO MYRIAM AT PATIENT'S BEDSIDE. PATIENT IS SITTING UP ON THE SIDE OF THE PARTICIPATING IN THE CONVERSATION. CM UPDATED SON ON LOCATION OF PATIENT'S TRUCK AT [facility] AND THAT THE SPIRAL GEAR GENERATOR ON [place] THE NIGHT OF THE INCIDENT WAS ROCAEL LAWSON. CM ALSO GAVE PATIENT CONTACT INFORMATION AGAIN. DISCHARGE PLAN IS TO DISCHARGE TODAY WITH SON AND THEY HAVE PLANS TO DRIVE PATIENT'S VEHICLE BACK TO [place].
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
[2019-05-07 12:45] VITALS: BP 184/67
== END 2019-05-07 12:49 | disposition home or self-care (01) | DRG 70 ==
LOC: ER 04:21 → MS 06:39
PROVIDERS: ADMIT Family Medicine; ATTEND Family Medicine
DX: G93.41 Metabolic encephalopathy (principal); J18.9 Pneumonia, unspecified organism; N39.0 Urinary tract infection, site not specified; D64.9 Anemia, unspecified; E11.9 Type 2 diabetes mellitus without complications; I10 Essential (primary) hypertension; E78.5 Hyperlipidemia, unspecified; Z60.2 Problems related to living alone; Z79.84 Long term (current) use of oral hypoglycemic drugs; Z79.82 Long term (current) use of aspirin; Z79.899 Other long term (current) drug therapy
CPT/HCPCS: 36415; 70450; 71045; 80053; 81000; 82550; 82948; 84484; 85025; 85610; 85730; 87040; 87077; 87086; 87186; 90714; 90715; 93005; 99285; G0378; J0456; J0696; J1170; J1815; J7030; J7050